=== PATIENT | female | born 1990 | race Caucasian/White ===

== ENCOUNTER 2018-07-10 18:42 | Emergency (ER) | payer SELFPAY ==
[2018-07-10 19:05] VITALS: BMI 21.0
[2018-07-10 19:09] VITALS: PULSE 88; TEMP 98.1
[2018-07-10] MEDS ORDERED: Silver Sulfadiazine 1% Cream (20 gm) ONE (19:47)
[2018-07-10 20:23] VITALS: BP 112/71; RESP 18; O2SAT 98
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
[2018-07-10] MEDS ORDERED: Silver Sulfadiazine 1% Cream (20 gm) TOP SCH (22:00)
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
== END 2018-07-10 20:22 | disposition home or self-care (01) ==
LOC: C.ER 18:42
DX: S62.624A Displaced fracture of middle phalanx of right ring finger, initial encounter for closed fracture (principal); W19.XXXA Unspecified fall, initial encounter; Y92.811 Bus as the place of occurrence of the external cause